=== PATIENT | male | born 1955 | race Two or more races ===

== ENCOUNTER 2017-10-19 01:13 | Emergency (ER) | payer MEDICAID, OTHER ==
[~2017-10-19] VITALS: Ht 180.3 cm; Wt 113.4 kg
[2017-10-19 01:25] VITALS: BP 145/86
--- NOTE | 2017-10-19 01:34 | Emergency Room Report ---
History of Present Illness General Chief Complaint: Back Pain-No Injury Source: Patient Present Illness HPI This is a 62-year-old male with a history of kidney stone the past. He presents with chief complaint of left flank pain. Onset tonight. Initially left upper back pain that went away. But it came back tonight and awoke him up. He has vomiting. Pain now going toward the pelvic area. No hematuria. No dysuria. Pain is 10 out of 10. Nothing made it better. Nothing made it worse. Allergies: Coded Allergies: No Known Allergies (Unverified , 10/19/17) Patient History Past Medical History: see triage record, old chart reviewed Past Surgical History: other Pertinent Family History: none Social History: Denies: smoking Immunizations: other Reviewed Nursing Documentation: PMH: Agreed; PSxH: Agreed Nursing Documentation-PMH Past Medical History: No History, Except For Hx Cardiac Problems: Yes - open heart surgery, high cholesterol Hx Diabetes: Yes Review of Systems Eye: Denies: eye pain, blurred vision ENT: Denies: ear pain, nose congestion, throat swelling Respiratory: Denies: cough, shortness of breath Cardiovascular: Denies: chest pain, palpitations Gastrointestinal: Reports: abdominal pain; Denies: diarrhea, nausea, vomiting Musculoskeletal: Denies: back pain, joint pain Skin: Denies: rash Neurological: Denies: headache, numbness Endocrine: Denies: increased thirst, increased urine Hematologic/Lymphatic: Denies: easy bruising All Other Systems: negative except mentioned in HPI Physical Exam Vital Signs Date Time Temp Pulse Resp B/P (MAP) Pulse Ox O2 Delivery O2 Flow Rate FiO2 10/19/17 01:15 97.3 69 16 145/86 97 Room Air 97.3 vitals normal Sp02 EP Interpretation: reviewed, normal General Appearance: well appearing, alert, mild distress - from pain. Head: normocephalic, atraumatic Eyes: bilateral eye PERRL, bilateral eye EOMI ENT: hearing grossly normal, normal pharynx Neck: full range of motion, supple, no meningismus Respiratory: chest non-tender, lungs clear, normal breath sounds Cardiovascular #1: regular rate, rhythm, no murmur Gastrointestinal: normal bowel sounds, non tender, no mass, no organomegaly, no bruit, non-distended Musculoskeletal: back normal, gait/station normal, normal range of motion Psychiatric: mood/affect normal Skin: warm/dry Medical Decision Making Diagnostic Impression: Primary Impression: Ureteral calculus, left ER Course Patient presents with left flank pain. He has a 5 mm obstructing stone. No evidence of infection. Pain well-controlled now. We'll discharge home. Lab Results Impression labs unremarkable CT/MRI/US Diagnostic Results CT/MRI/US Diagnostic Results : Imaging Test Ordered: CT abdomen and pelvis Impression Read by radiologist. 5 mm obstructing stone. Mild hydro-. Last Vital Signs Date Time Temp Pulse Resp B/P (MAP) Pulse Ox O2 Delivery O2 Flow Rate FiO2 10/19/17 01:15 97.3 69 16 145/86 97 Room Air 97.3 Status: improved Disposition: HOME, SELF-CARE Condition: Stable Scripts Tamsulosin HCl (Flomax) 0.4 Mg Cap.er.24h 0.4 MG ORAL DAILY, #30 CAP Prov: DARRON BETANCOURT M.D. 10/19/17 Hydrocodone/Acetaminophen 5-325* (HYDROCODONE/ACETAMINOPHEN 5-325*) 1 Each Tablet 1 TAB ORAL Q6H PRN for For Pain, #20 TAB 0 Refills Prov: DARRON BETANCOURT M.D. 10/19/17 Additional Instructions: Follow-up with your doctor in 2-3 days. You will need a referral to see a neurologist. Return if symptom worsen. DARRON BETANCOURT M.D. Oct 19, 2017 01:34
[2017-10-19 01:43] LABS: APPEARANCE,URINE CLEAR; BILIRUBIN, URINE NEGATIVE (NEGATIVE); COLOR,URINE YELLOW; GLUCOSE, URINE (UA) NEGATIVE (NEGATIVE); KETONES,URINE 1+ (NEGATIVE); LEUKOCYTE ESTERASE ,URINE 1+ (NEGATIVE); NITRITE,URINE NEGATIVE (NEGATIVE); PH,URINE 5 (4.5-8.0); PROTEIN,URINE 1+ (NEGATIVE); UROBILINOGEN,URINE 1 MG/DL (0.0-1.0)
[2017-10-19 01:43] LABS: BASOPHILS % (AUTO) 0.6 % (0.0-2.0); EOSINOPHILS % (AUTO) 1.7 % (0.0-3.0); HEMATOCRIT 41.4 % (42.0-52.0); HEMOGLOBIN 14.5 G/DL (14.2-18.0); LYMPHOCYTES % (AUTO) 33.5 % (20.0-45.0); MEAN CORPUSCULAR VOLUME 88 FL (80-99); MONOCYTES % (AUTO) 9.1 % (1.0-10.0); NEUTROPHILS % (AUTO) 55.1 % (45.0-75.0); PLATELET COUNT 251 K/UL (150-450); RED BLOOD COUNT 4.72 M/UL (4.70-6.10); RED CELL DISTRIBUTION WIDTH 11.4 % (11.6-14.8); WHITE BLOOD COUNT 6.4 K/UL (4.8-10.8)
[2017-10-19] MEDS ORDERED: HYDROmorphone 1mg/ml Carpuject IVP ONE (01:45)
[2017-10-19 02:00] LABS: ANION GAP 7 mmol/L (5-15); BLOOD UREA NITROGEN 17 mg/dL (7-18); CALCIUM 9.4 MG/DL (8.5-10.1); CARBON DIOXIDE 33 MMOL/L (21-32); CHLORIDE 103 MMOL/L (98-107); CREATININE 1.2 MG/DL (0.55-1.30); POTASSIUM 3.9 MMOL/L (3.5-5.1); SODIUM 143 MMOL/L (136-145)
[2017-10-19] MEDS ORDERED: Ketorolac 30mg Inj ONE (02:08)
[2017-10-19] MEDS ORDERED: Ketorolac 30mg Inj IV ONE (02:15)
[2017-10-19] MEDS ORDERED: FLOMAX0.4 MG ORAL (02:28)
[2017-10-19] MEDS ORDERED: HYDROCODON-ACE1 EA15 ORAL (02:28)
[2017-10-19 02:48] VITALS: BP 145/86
--- NOTE | 2017-10-19 09:06 | Diagnostic Imaging Report ---
Indication: Abdominal pain Technique: CT scan of the abdomen and pelvis utilizing automated exposure control without intravenous or oral contrast. Axial, sagittal and coronal images were obtained. CT dose: Total DLP 1253 mGycm; CTDI vol 23.6 mGy Comparison: None Findings: Evaluation of the solid organs is limited without intravenous contrast material. There is dependent atelectasis. There is a small hiatal hernia. Liver, adrenal glands, spleen and pancreas are grossly unremarkable. No CT evidence gallstones are identified. There is an approximately 5 mm left mid ureteral calculus with mild left hydronephrosis. Bilateral renal nonobstructive calculi are seen measuring up to 7 mm. Small hypodense probable cyst is noted in the upper pole of the left kidney. Small bowel loops are normal in caliber. The appendix is normal. There is colonic diverticulosis without diverticulitis. There is no free intraperitoneal fluid or air. Atherosclerotic changes are seen. Abdominal aorta is normal in caliber. Degenerative changes of the spine are present. There is a small fat-containing umbilical hernia. Impression: Approximately 5 mm left mid ureteral calculus with mild left hydronephrosis. Bilateral nonobstructive renal calculi. Extensive colonic diverticulosis without diverticulitis. Hiatal hernia. Other findings as above. The CT scanner at [facility] is accredited by the [employer] and the scans are performed using protocols designed to limit radiation exposure to as low as reasonably achievable to attain images of sufficient resolution adequate for diagnostic evaluation.
[2017-10-20] MEDS ORDERED: CRESTOR20 MG ORAL (12:54)
[2017-10-20] MEDS ORDERED: ASPIR 8181 MG ORAL (12:54)
[2017-10-20] MEDS ORDERED: METFORMIN HCL1000 M1 ORAL (12:54)
[2017-10-20] MEDS ORDERED: METOPROLOL TART50 MG ORAL (17:29)
== END 2017-10-19 02:48 | disposition home or self-care (01) ==
LOC: EMR 01:41
DX: N13.2 Hydronephrosis with renal and ureteral calculous obstruction (principal); K57.32 Diverticulitis of large intestine without perforation or abscess without bleeding; K44.9 Diaphragmatic hernia without obstruction or gangrene; E11.9 Type 2 diabetes mellitus without complications
CPT/HCPCS: 36415; 74176; 80048; 81003; 85025; 96374; 96375; 99284; J1170; J1885; J2405